=== PATIENT | female | born 1965 | race Caucasian/White ===

== ENCOUNTER 2019-02-06 13:55 | Emergency (ER) | payer MEDICAID, OTHER ==
[~2019-02-06] VITALS: Wt 78.0 kg
[~2019-02-06 13:55] MED LIST: IBUP-1542 PO; MED4DP PO; PROM6.256 PO
[2019-02-06 13:59] VITALS: BP 129/60; PULSE 78; RESP 18
[2019-02-06] MEDS ORDERED: FLUT16SP17 NASAL (15:27)
[2019-02-06] MEDS ORDERED: GUAI120S25 PO (15:27)
[2019-02-06] MEDS ORDERED: CETI10TA34 PO (15:27)
[2019-02-06] MEDS ORDERED: DEXAMETHASONE 10 MG/ML 1 ML INJ IM ONE (15:30)
--- NOTE | 2019-02-06 16:49 | ERD ---
ER Documentation Chief Complaint Chief Complaint SEASONAL ALLERGY - NASAL CONGESTION, ITCHY EYES HPI History of Present Illness: 53-year-old female with no past medical history coming in today with complaint of ear pain, nasal congestion, itchy eyes, sore throat. Patient reports symptoms have been present and worsening over the past week. Patient denies any other associated symptoms. Patient denies fever, fatigue, chills. At home pharmacological/nonpharmacological treatment for symptoms: Denies Denies social concerns; Denies recent foreign travel ROS All systems reviewed and are negative except as per history of present illness. Medications Home Meds Active Scripts Aorapmtowwd-J-Qognwqvcrc Hb* (Guaifenesin* DM Syrup) 120 Ml Syrup, 10 ML PO Q6 PRN for COUGH, #120 ML Prov:LILY LEONARD NP 02/06/19 Cetirizine Hcl* (Cetirizine Hcl*) 10 Mg Tab.chew, 10 MG PO DAILY for RUNNY NOSE/ALLERGIES/COUGH, #30 TAB Prov:LILY LEONARD NP 02/06/19 Fluticasone Propionate* (Fluticasone Propionate* Nasal) 50 Mcg/Chetek - 16 Gm Chetek.susp, 1 SPRAY NASAL DAILY for NASAL CONGESTION, #1 BOTTLE TO EACH NOSTRIL Prov:LILY LEONARD NP 02/06/19 Ibuprofen* (Motrin*) 600 Mg Tab, 600 MG PO Q6, #30 TAB Prov:FAMILIA PRO PA-C 04/29/16 Methylprednisolone* (Medrol* DOSE PACK) 4 Mg/Dose-Pack Tab.ds.pk, 4 MG PO . DIRECTED for 7 Days, PACKET Prov:JILLIAN LORENZO NP 12/19/15 Promethazine Hcl* (Phenergan* Liq) 6.25 Mg/5 Ml Syrup, 12.5 MG PO Q6H PRN for COUGH for 4 Days, ML Prov:JILLIAN LORENZO NP 12/19/15 Allergies Allergies: Coded Allergies: No Known Allergy (Unverified , 12/19/15) PMhx/Soc Medical and Surgical Hx: pt denies Medical Hx Anesthesia Reaction: No Hx Neurological Disorder: No Hx Respiratory Disorders: No Hx Cardiac Disorders: No Hx Psychiatric Problems: No Hx Miscellaneous Medical Probl: No Hx Alcohol Use: No Hx Substance Use: No Hx Tobacco Use: No Smoking Status: Never smoker FmHx Family History: diabetes, coronary disease Physical Exam Vitals Vital Signs Date Temp Pulse Resp B/P (MAP) Pulse Ox O2 O2 Flow FiO2 Time Delivery Rate 02/06/19 98.0 78 18 129/60 99 13:59 (83) Physical Exam GENERAL: The patient is well-appearing, well-nourished, in no acute distress HEENT: Atraumatic. Conjunctivae are pink. Pupils equal, round, and reactive to light. There is no scleral icterus. No erythema to tympanic membranes, no bulging, no perforation. Oropharynx erythematous without tonsillar exudate. Nasal turbinates swollen, nasal mucosa erythematous, clear rhinorrhea. NECK: Full range of motion. There is no meningismus. There is no cervical lymphadenopathy. CHEST: Clear to auscultation bilaterally. There are no rales, wheezes or rhonchi. HEART: Regular rate and rhythm. No murmurs, clicks, rubs or gallops. ABDOMEN: Soft, non tender, non distended. Normal bowel sounds EXTREMITIES: No cyanosis, or edema NEURO: Awake and alert Results 24 hrs Current Medications Medications Dose Sig/Cruz Start Time Status Last (Trade) Ordered Route PRN Stop Time Admin Dose Reason Admin 8 mg ONCE ONCE 02/06/19 DC 02/06/19 Dexamethasone IM 15:30 15:40 (Decadron) 02/06/19 15:31 Procedures/MDM ED course includes a thorough examination and history. Medications: Dexamethasone Imaging: -- Labs: --- Low suspicion for life-threatening medical emergency. Low suspicion for HEENT medical records hospitalization or immediate surgical intervention. No kathya picion for infectious process. Patient afebrile hemodynamically stable. Otherwise healthy patient presenting with constellation of symptoms likely representing uncomplicated allergic rhinitis as characterized by history, physical exam findings. No respiratory distress, otherwise relatively well appearing and nontoxic. Patient educated on diagnoses, prescriptions, follow-up care, return precautions. Strict return precautions given for worsening condition; questions answered discharge. Disposition for discharge with followup in 2 days with PCP/clinic. Departure Diagnosis: Primary Impression: Allergic rhinitis Allergic rhinitis trigger: unspecified Allergic rhinitis seasonality: unspecified Qualified Codes: J30.9 - Allergic rhinitis, unspecified Condition: Stable Patient Instructions: Allergic Rhinitis Ref[facility] Usted se lanza hecho un examen mdico de control que le indica que no est en merry condicin que requiera tratamiento urgente en el Departamento de Emergencia. Un estudio ms profundo y el tratamiento de lockett condicin pueden esperar sin ningn riesgo hasta que usted sea atendida/o en el consultorio de lockett mdico o merry clnica. Es responsabilidad suya arreglar merry stanley para el seguimiento del vj. MANEJO DE CONDICIONES NO URGENTES EN EL FUTURO 1) Si usted tiene un mdico de atencin primaria: Usted debera llamar a lockett mdico de atencin primaria antes de venir al departamento de emergencia. Despus de las horas de consultorio, lockett doctor o lockett asociado/a est disponible por telfono. El mdico o enfermero de mamta en el servicio telefnico puede asesorarle por sowmya medio para atender el problema, o vj contrario se puede programar merry stanley. 2) Si usted no tiene un mdico de atencin primaria: Llame al mdico o clnica de referencia que aparece abajo will las horas de consultorio para hacer merry stanley para que le vean. CLINICAS: [facility] [phone] [address] [facility] [phone] [facility] [phone] [address] [facility] [facility] [phone] [facility] [place] [phone] [address] [facility]. [phone] [address] [facility]. [facility] () Usted se lanza hecho un examen mdico de control que le indica que no est en merry condicin que requiera tratamiento urgente en el Departamento de Emergencia. Un estudio ms profundo y el tratamiento de lockett condicin pueden esperar sin ningn riesgo hasta que usted sea atendida/o en el consultorio de lockett mdico o merry clnica. Es responsabilidad suya arreglar merry stanley para el seguimiento del vj. MANEJO DE CONDICIONES NO URGENTES EN EL FUTURO 1) Si usted tiene un mdico de atencin primaria: Usted debera llamar a lockett mdico de atencin primaria antes de venir al departamento de emergencia. Despus de las horas de consultorio, lockett doctor o lockett asociado/a est disponible por telfono. El mdico o enfermero de mamta en el servicio telefnico puede asesorarle por sowmya medio para atender el problema, o vj contrario se puede programar merry stanley. 2) Si usted no tiene un mdico de atencin primaria: Llame al mdico o condado institucions de referencia que aparece abajo will las horas de consultorio para hacer merry stanley para que le vean. SI USTED NO PUEDE PAGAR PARA NATHAN UN MEDICO puede ir a: [facility] [address] [place] [address] [facility] [address] [place] [address] [facility] [address] [place] [address] [facility] [address] [place], [place] [id number] Additional Instructions: Muchas debbie por permitirnos participar en lockett cuidado. Lockett dale y seguridad es nuestra principal prioridad en [facility]. Es importante leer todas las instrucciones de yung y la educacin que se proporcionan en lockett paquete de yung. Llame a lockett mdico de atencin primaria MAANA para merry stanley will los prximos 2 a 4 bermudez y lleve toda la informacin y los medicamentos recetados. Llene las recetas y siga exactamente las instrucciones de la etiqueta. -Fluticasona es un aerosol de esteroides para la nariz; Use esto todos los bermudez para congestin nasal / nasal congestionada. -Cetirizina divya antihistamnico que no debe causar somnolencia; tome nataliia medicamento todos los bermudez para los sntomas de alergia / tos / secrecin nasal. -Guaifenesina / dextrometorfano divya un jarabe para la tos. [place] ayudar con la tos, as divya la congestin en el pecho. [place] te ayudar a expulsar el moco crowe que tienes. Si los sntomas empeoran y lockett proveedor no est disponible, regrese inmediatamente al Departamento de Emergencias. --- Thank you very much for allowing us to participate in your care. Your health and safety is our top priority at [facility]. It is important to read all discharge instructions and education provided in your discharge packet. Call your primary care doctor TOMORROW for an appointment during the next 2-4 days and bring all the information and medications prescribed. Have prescriptions filled and follow precisely the directions on the label. -Fluticasone Is a Steroid Nose Chetek for the Nose; Use This Every Day for Stuffy Nose/Nasal Congestion. -Cetirizine as an antihistamine that should not cause drowsiness; take this medication every day for allergy-like symptoms/cough/runny nose. -Guaifenesin/dextromethorphan as a cough syrup. This will help with cough as well as chest congestion. This will help you cough up the white mucus that you have. If the symptoms get worse and your provider is unavailable, return to the Emergency Department immediately. LILY LEONARD NP Feb 06, 2019 16:49
== END 2019-02-06 15:50 | disposition home or self-care (01) ==
LOC: FTE 13:55
DX: J30.9 Allergic rhinitis, unspecified (principal)
CPT/HCPCS: 96372; J1100; Z7502